=== PATIENT | male | born 1930 | race Caucasian/White ===

== ENCOUNTER 2018-08-13 11:21 | Emergency (ER) | payer OTHER ==
[2018-08-13] MEDS: ONDANSETRON 4 MG INJ IV (12:06)
[2018-08-13] MEDS: SOD CHLORIDE 0.9% 1,000 ML IV (12:06)
[2018-08-13 12:07] LABS: ADD MAN DIFF? NO
[2018-08-13 12:11] LABS: BASOPHILS % 0.1 % (0.0-2.0); HEMATOCRIT 47.4 % (42.0-52.0); HEMOGLOBIN 15.6 g/dl (14.0-18.0); LYMPHOCYTES # 0.7 10^3/ul (0.8-2.9); LYMPHOCYTES % 3.6 % (15.0-51.0); MEAN CORPUSCULAR HEMOGLOBIN 30.8 pg (29.0-33.0); MEAN CORPUSCULAR HGB CONC 32.9 g/dl (32.0-37.0); MEAN CORPUSCULAR VOLUME 93.7 fl (82.0-101.0); MEAN PLATELET VOLUME 11.6 fl (7.4-10.4); MONOCYTE # 1.1 10^3/ul (0.3-0.9); MONOCYTES % 5.4 % (0.0-11.0); NEUTROPHIL # 18.4 10^3/ul (1.6-7.5); NEUTROPHILS % 90.4 % (39.0-77.0); PLATELET COUNT 197 10^3/UL (140-415); RED BLOOD COUNT 5.06 10^6/ul (4.70-6.10); RED CELL DISTRIBUTION WIDTH 13.3 % (11.5-14.5)
[2018-08-13 12:11] LABS: WHITE BLOOD COUNT 20.4 10^3/ul (4.8-10.8)
[2018-08-13 12:32] LABS: INR 1.01; PROTIME 13.4 Sec (11.9-14.9)
[2018-08-13 12:33] LABS: PARTIAL THROMBOPLASTIN TIME 29.7 Sec (23.0-35.0)
[2018-08-13 12:34] LABS: ALANINE AMINOTRANSFERASE 28 IU/L (13-69); ALBUMIN 4.3 g/dl (3.3-4.9); ALKALINE PHOSPHATASE 57 IU/L (42-121); ANION GAP 14 (5-13); ASPARTATE AMINO TRANSFERASE 27 IU/L (15-46); BILIRUBIN,INDIRECT 0.5 mg/dl (0-1.1); BILIRUBIN,TOTAL 0.5 mg/dl (0.2-1.3); BLOOD UREA NITROGEN 21 mg/dl (7-20); CALCIUM 9.3 mg/dl (8.4-10.2); CARBON DIOXIDE 32 mmol/L (21-31); CHLORIDE 97 mmol/L (97-110); CREATININE 1.06 mg/dl (0.61-1.24); GLUCOSE 165 mg/dl (70-220); POTASSIUM 3.8 mmol/L (3.5-5.1); SODIUM 143 mmol/L (135-144); TOTAL PROTEIN 7.6 g/dl (6.1-8.1)
[2018-08-13 12:44] LABS: TROPONIN-I < 0.012 ng/ml (0.000-0.120)
[2018-08-13] MEDS: CEFEPIME 2GM/50 ML (PMX) 50 ML IVPB (12:44)
[2018-08-13] MEDS: SODIUM CHLORIDE 0.9% 1L BAG IV* (12:44)
[2018-08-13] MEDS: VANCOMYCIN 1 GM (PMX) 250 ML IVPB (13:04)
[2018-08-13 16:49] LABS: LACTIC ACID 2.9 mmol/L (0.5-2.0)
== END 2018-08-13 16:12 | disposition short-term general hospital (02) ==
LOC: E/R 16:12
DX: K57.20 Diverticulitis of large intestine with perforation and abscess without bleeding (principal); J18.1 Lobar pneumonia, unspecified organism; A41.9 Sepsis, unspecified organism; R65.20 Severe sepsis without septic shock; G93.40 Encephalopathy, unspecified; R41.82 Altered mental status, unspecified
CPT/HCPCS: 36415; 70450; 71045; 74176; 80053; 82962; 83605; 84484; 85025; 85610; 85730; 87040; 93005; 96374; 96375; 99291-25